=== PATIENT | male | born 1955 | race Caucasian/White ===

== ENCOUNTER → 2020-07-02 09:06 | Outpatient (CLI) | payer OTHER, SELFPAY ==
[2020-07-02 09:51] LABS: COVID19 -Nasal RAPID Negative (Negative)
== END ==
PROVIDERS: PCP Internal Medicine; Visit Provider Specialist
DX: Z20.822 Contact with and (suspected) exposure to COVID-19 (principal)
CPT/HCPCS: 87635; C9803

== ENCOUNTER 2020-07-03 07:11 | Day surgery (SDC) | payer OTHER, SELFPAY ==
--- NOTE | 2020-07-03 | PATH_ITS ---
[facility] Accession Number: [id number] . 01 Material submitted: . rectum - RECTAL POLYP . 02 Diagnosis: Rectal Polyp: Portions of hyperplastic polyp x2. MRV 07/08/2020 1126 Local . 02 Electronically signed: . Tami Harry MD, Pathologist NPI- [id number] . 01 Gross description: . The specimen is received in formalin, labeled rectal polyp, and consists of two feliz-pink fragments of soft tissue measuring 0.4 x 0.3 x 0.2 cm in aggregate. The specimen is entirely submitted in cassette A1. ([id number]) /[facility] 07/04/2020 1546 Local . 02 Pathologist provided ICD-10: Z12.11, K63.5 . 02 CPT . 809293 Performed at: 01 [facility] [address] [id number] MD Amarjit Milian MD Phone: [phone] Performed at: 02 [facility] [address] [place] [id number] MD Brook Loja MD Phone: [phone]
[2020-07-03 07:31] VITALS: BP 115/67; PULSE 50; RESP 18; TEMP 36.3; O2SAT 97; BMI 26.7
[2020-07-03] MEDS: LACTATED RINGERS 1,000 ML 200 ML IV (07:43)
--- NOTE | 2020-07-03 09:08 | P.HP_ITS ---
History of Present Illness History of Present Illness Date Patient Seen: 07/03/20 Time Patient Seen: 09:08 Chief complaint: SDC Narrative: Patient is gentleman here for screening colonoscopy. His last exam was fiber 6 years ago. He has a personal history of polyps. No symptoms. Patient History Medical History H/O adenomatous polyp of colon Peripheral neuropathy Right carpal tunnel syndrome Surgical History S/P knee surgery (~1979) Family & Social History Family History Father Parkinson disease Social History: household members spouse Tobacco & Substance use: Smoking Status Never smoker alcohol intake current alcohol intake frequency a few times a week Substance Use Type does not use Meds Home Medications and Allergies Home Medications Medication Instructions Recorded Confirmed Type sodium,potassium,mag sulfates 17.5 177 ml PO DAILY #354 ml 07/02/20 07/03/20 Rx gram-3.13 gram-1.6 gram oral soln acetaminophen [Tylenol] 325 mg PO QID PRN 07/03/20 07/03/20 History Allergies Allergy/AdvReac Type Severity Reaction Status Date / Time Penicillins Allergy Severe Kid. High Verified 07/03/20 07:21 fever xdays - hives on body. Review of Systems Review of Systems Narrative: Knee arthritis ROS: Yes All systems reviewed with the patient and are negative except as otherwise documented Exam Vital Signs (past 8 hours): - 07/03/20 07:31 Temperature 97.3 F L Pulse Rate 50 L Respiratory Rate 18 Blood Pressure 115/67 Pulse Oximetry 97 Oxygen Delivery Method Room Air Narrative Exam Narrative: Pleasant cooperative patient no apparent distress. Lungs are clear to auscultation. No rales or rhonchi. Heart regular rate and rhythm no murmur gallop. Abdomen is soft nontender without mass. No obvious hernias. Patient is alert and oriented x3. Assessment & Plan Assessment & Plan narrative: The patient for a screening colonoscopy. I have d iscussed the procedure with them. Risks of bleeding, perforation which would necessitate major operation, failure to find remove all lesions, the potential tattoo were all discussed. All questions were answered. They wished to proceed.
--- NOTE | 2020-07-03 09:09 | PM.PREOP ---
Pre-operative Note COVID-19 COVID-19 status: Negative Result date/Date tested (Pos, Neg/Pending): 07/02/20 Interval Note History & Physical reviewed/Exam performed by Physician: Yes Changes to H&P: No ASA Class (for procedural sedation): I
[2020-07-03] MEDS: MIDAZOLAM 5 MG/5 ML VIAL IV (09:44)
--- NOTE | 2020-07-03 09:44 | PM.OP.ENDO ---
Operative Date/Time/Diagnoses Date of procedure: 07/03/20 Time of procedure: 09:44 Pre-op diagnosis: Screening exam. Personal history of polyps. Post-op diagnosis: same (Diverticulosis of the sigmoid colon. One very small polyp in the rectum.) Procedure & Clinicians Study performed: Colonoscopy with cold biopsy Same procedure as scheduled: Yes Indications: Screening Surgeon: Mars Owusu Procedure Notes SCOAP/Timeout: Performed Procedure in detail: The patient was placed in the left lateral decubitus position and underwent IV sedation directed by the surgeon consisting of fentanyl and Versed. Digital exam was unremarkable. He had his prostate is flat. He did have external hemorrhoids noted.. The scope was inserted and advanced through the rectum into the sigmoid, descending, transverse, and ascending colon. Diverticulosis was noted in his sigmoid colon.. The cecum was reached identified by the ileocecal valve and the appendiceal opening. The ileocecal valve was successfully cannulated. The terminal ileum was normal in appearance. The scope was gradually brought out. One Polyp was found at the rectum not far from the anal verge. This was biopsied and removed.. The scope ultimately was retroflexed in the rectum. The appearance was remarkable for prominent veins and hemorrhoids without ulceration.. The scope was removed and the patient tolerated the procedure well. Scope withdrawal time: 9.5 minutes Sedation minutes: 23 Findings: diverticulosis, internal hemorrhoids and polyp Specimen(s): other (Polyp) Complications: none Post-procedure Recommendations: Colonscopy in 5 years Follow up: as needed Disposition: PACU
[2020-07-03] MEDS: fentaNYL 250 MCG/5 ML INJ IV (09:45)
[2020-07-03 09:47] VITALS: BP 112/68; PULSE 57; RESP 12; TEMP 36.6; O2SAT 95
[2020-07-03 09:52] VITALS: BP 101/66; PULSE 50; RESP 10; O2SAT 96
[2020-07-03 09:57] VITALS: BP 97/62; PULSE 47; RESP 10; O2SAT 95
[2020-07-03 10:02] VITALS: BP 92/64; PULSE 48; RESP 10; TEMP 36.5; O2SAT 95
[2020-07-03 10:05] VITALS: BP 94/61; PULSE 75; RESP 12; TEMP 36.6; O2SAT 98
== END 2020-07-03 10:25 | disposition home or self-care (01) ==
PROVIDERS: PCP Internal Medicine; Referring Provider Specialist; Visit Provider Specialist
PROC: 0DJD8ZZ Inspection of Lower Intestinal Tract, Via Natural or Artificial Opening Endoscopic (ICD-10-PCS; CPT 45378; principal; 2020-07-03 08:45)
DX: K57.30 Diverticulosis of large intestine without perforation or abscess without bleeding (principal); K64.8 Other hemorrhoids; K63.5 Polyp of colon; Z86.010 Personal history of colon polyps; G62.9 Polyneuropathy, unspecified; Z12.11 Encounter for screening for malignant neoplasm of colon
CPT/HCPCS: 45380; 99152; J2250; J3010

== ENCOUNTER → 2022-05-11 07:26 | Outpatient (CLI) | payer MEDICARE, SELFPAY ==
[2022-05-11 08:56] LABS: Testosterone 359 ng/dL (71.8-623)
== END ==
PROVIDERS: PCP Family Medicine; Referring Provider Urology; Visit Provider Urology
DX: N52.9 Male erectile dysfunction, unspecified (principal)
CPT/HCPCS: 36415; 84403